=== PATIENT | female | born 1975 | race Caucasian/White ===

== ENCOUNTER → 2018-03-28 | Day surgery (SDC) | END | disposition home or self-care (01) | DX: N80.0 Endometriosis of uterus (principal); N92.0 Excessive and frequent menstruation with regular cycle; N94.6 Dysmenorrhea, unspecified | CPT/HCPCS: 00952; 58563; 84703; 88305; J0131; J0690; J1100; J1885; J2250; J7120; J8501 ==

== ENCOUNTER 2018-09-26 05:18 | Observation (INO) ==
[2018-09-26] MEDS ORDERED: Chlorhexidine Gluconate 2% 1 Pack (2 Cloths) TOPICAL ONE (05:42)
[2018-09-26] MEDS ORDERED: Metoprolol Tartrate 25 MG Tablet PO ONE (05:42)
[2018-09-26] MEDS ORDERED: ceFAZolin 2 GM Premix Inj 2 GM/50 ML PIGGYBACK IV.SIG SCH (06:00)
[2018-09-26] MEDS ORDERED: Sodium Chlor 0.9% Inj 500 ML IV.SIG SCH (06:00)
[2018-09-26] MEDS ORDERED: Bupivacaine/Epinephrine 0.5% Inj 50 ML Vial ONE (07:10)
[2018-09-26] MEDS ORDERED: Fluorescein Sod 10% Inj 500 MG/5 ML Ampul IV.PUSH ONE (07:10)
[2018-09-26] MEDS ORDERED: Esmolol Bolus Inj 100 MG/10 ML Vial IV.PUSH ONE (07:50)
[2018-09-26] MEDS ORDERED: Glycopyrrolate Inj 1 MG/5 ML Syringe IV.PUSH ONE (07:50)
[2018-09-26] MEDS ORDERED: Neostigmine Inj 5 MG/5 ML Syringe IV.PUSH ONE (07:50)
[2018-09-26] MEDS ORDERED: Lidocaine PF 1% Inj 5 ML Syringe OTHER ONE (07:50)
--- NOTE | 2018-09-26 07:57 | P.OP ---
- Preoperative Diagnosis (1) Excessive and frequent menstruation with regular cycle (2) Endometriosis of pelvic peritoneum (3) Intramural leiomyoma of uterus (4) Other specified conditions associated with female genital organs and menstrual cycle - Postoperative Diagnosis (1) Excessive and frequent menstruation with regular cycle (2) Endometriosis of pelvic peritoneum (3) Intramural leiomyoma of uterus (4) Other specified conditions associated with female genital organs and menstrual cycle Date of procedure: 09/26/18 Procedure: 1. laparoscopic supracervical hysterectomy 2. bilateral salpingectomy 3. fulguration of endometriosis Anesthesia: [place] Surgeon: Colleen Vásquez MD [employer] Pit Supervisor: OR Staff Estimated blood loss (mL): 25 IV fluids (mL): 1,000 (+ IV antibiotics + Methylene blue) Urine output (mL): 200 Pathology: other (uterus, tubes) Operation and Findings: Findings: 1. enlarged uterus 2. normal tubes and ovaries 3. extensive endometriosis in pelvic area / adnexa Complications: none Condition: stable Disposition: PACU Descriptions of the procedure: I discussed the risks, benefits and alternatives of the procedure with the patient. Informed consent was obtained after questions were answered. She was then taken to the operating room with her IV running. She was placed in the supine position and was given general anesthesia without difficulties or complications. IV antibiotics were given prior to surgery. She was then placed in the dorsal lithotomy position and was prepped and draped in the usual sterile fashion. Attention was first turned to the patient's genital area. A bivalved speculum was introduced inside the patient's vagina. The anterior aspect of the cervix was grasped with a single tooth tenaculum for manipulation. The cervix was carefully dilated and electrocauterized with the Bovie. A uterine manipulator was carefully introduced inside her uterus. The rest of the instruments were removed from the patient's vagina. A sterile blue towel was used to cover the perineum. The surgeon changed gloves and attention was then turned to the patient's abdomen. A vertical umbilical incision was made with the scalpel. A 5 mm trocar was introduced inside the patient's abdomen under direct visualization. A pneumo -peritoneum was created with CO2 gas. One 5 mm trocars and one 10 mm trocar were introduced inside the patient's abdomen under direct visualization in the lower left and mid abdomen. A survey of the patient's abdomen revealed normal anatomy. A survey of the patient's pelvis revealed the findings noted above. The fallopian tubes were carefully grasped, electrocauterized and transected with the Harmonic scalpel. The round ligaments and the utero-ovarian ligaments were carefully and serially grasped, electrocauterized and cut with the Harmonic scalpel. Excellent hemostasis was noted. Methylene blue dye was given to patient. The tissues along the uterus on both sides were serially grasped, electrocauterized and transected with the Harmonic scalpel. The ureters were noted to be away from the surgical site. The uterine vessels were skeletonized, electrocauterized and transected with the Harmonic scalpel. Good hemostasis was noted. Next, the bladder flap was created and the bladder was dissected off the lower uterine segment. Excellent hemostasis was noted. The uterine manipulator was removed. Chen loop was used to cut and electrocauterize the cervico-uterine junction. Good hemostasis was noted. The Kleppinger was used to electrocauterize the endocervix. The morcellator was introduced inside the abdomen under direct visualization and was used to cut the uterus. The tissues were carefully removed and sent to Pathology. The multiple endometriotic lesions were electrocauterized with the Kleppinger. The surgical sites were noted to be hemostatic. Copious irrigation was done. Care was taken to ensure the removal of all small pieces of tissue which were left in the abdomen and pelvis after morcellation. Methylene blue dye was given at the beginning of the surgical procedure. The ureters were identified again and were found to be away from the surgical sites. There was no evidence of injury or blockage of the ureters or bladder. Intercede was placed over the cervix. All of the instruments were removed from the patient's abdomen. The ports were also removed under direct visualization. Excellent hemostasis was noted. The CO2 gas was carefully expressed out of the patient's abdomen. The 10 mm fascial incision was reapproximated with a figure eight stitch of 0-Vicryl. The skin incisions were injected with 0.5 % Marcaine and were reapproximated with subcutaneous stitches of 4-0 Vicryl. Mastisol and steri strips were placed over the incisions. The patient tolerated the procedure well. She was successfully extubated and transferred to PACU in stable condition. Note: I discussed surgical procedures and surgical findings with patient's significant other. His questions were answered. He verbalized understanding.
[2018-09-26] MEDS ORDERED: Ibuprofen 600 MG Tablet PO PRN (09:35)
[2018-09-26] MEDS ORDERED: Zolpidem Tartrate 5 MG Tablet PO PRN (09:35)
[2018-09-26] MEDS ORDERED: LORazepam 0.5 MG Tablet PO PRN (09:35)
[2018-09-26] MEDS ORDERED: fentaNYL Citrate Inj 100 MCG/2 ML Ampul ONE (09:59)
[2018-09-26] MEDS ORDERED: Morphine Inj 4 MG/ML Vial ONE ×2 (09:59)
[2018-09-26] MEDS ORDERED: *Ondansetron Inj 4 MG/2 ML Vial PERIprocedural Use ONLY ONE (10:03)
[2018-09-26] MEDS ORDERED: *Promethazine Inj 25 MG/ML Vial PERIprocedural use ONLY ONE (10:24)
[2018-09-26 17:00] VITALS: RESP 18
[2018-09-26] MEDS: Docusate Sodium 100 MG Capsule PO SCH (22:08)
[2018-09-26 23:39] VITALS: TEMP 98.1; O2SAT 97
[2018-09-27 05:29] VITALS: BP 103/55; PULSE 68
[2018-09-27 07:16] LABS: Baso % (Auto) 0.4 % (0.0-2.0); Eos # (Auto) 0.1 th/mm3 (0.0-0.4); Eos % (Auto) 1.3 % (0.0-4.0); Hematocrit 40.6 % (35.0-46.0); Hemoglobin 13.7 gm/dL (11.6-15.3); Lymph # (Auto) 1.3 th/mm3 (1.0-4.8); Lymph % (Auto) 15.4 % (9.0-44.0); Mean Corpuscular HGB Conc 33.6 % (32.0-36.0); Mean Corpuscular Volume 95.3 fL (80.0-100.0); Mean Platelet Volume 7.2 fL (7.0-11.0); Mono # (Auto) 0.4 th/mm3 (0.0-0.9); Mono % (Auto) 4.8 % (0.0-8.0); Neut # (Auto) 6.8 th/mm3 (1.8-7.7); Neut % (Auto) 78.1 % (16.0-70.0); Platelet Count 197 th/mm3 (150-450); Red Blood Count 4.26 mil/mm3 (4.00-5.30); Red Cell Distribution Width 12.8 % (11.6-17.2); White Blood Count 8.7 th/mm3 (4.0-11.0)
[2018-09-27 07:33] LABS: Anion Gap 6 meq/L (5-15); Blood Urea Nitrogen 9 mg/dL (7-18); Calcium 7.9 mg/dL (8.5-10.1); Carbon Dioxide 29.4 meq/L (21.0-32.0); Chloride 107 meq/L (98-107); Glomerular Filtration Rate Greater Than 89 mL/min (>89); Glucose,Random 87 mg/dL (74-106); Potassium 3.5 meq/L (3.5-5.1); Sodium 142 meq/L (136-145)
--- NOTE | 2018-09-27 09:08 | P.PNOB ---
Assessment and Plan (1) Pelvic pain Status: Acute - Postoperative Procedures Operation Date: 09/26/18 07:50 Actual Procedures Side Surgeon p LAPAROSCOPIC SUPRACERVICAL HYSTERECTOMY, BILATERAL SALPINGECTOMY, FULGARIZATION OF ENDOMETRIOSIS Bilateral Colleen Vásquez MD Postoperative day: 1 Postoperative status: doing well Postoperative plan: routine post-op care, discharge - Time Spent With Patient Total time spent is greater than 50% in coordination of care (as documented) at patient's floor/unit and/or counseling patient: less than 15 minutes Subjective Subjective: patient reports feeling better, patient has no complaints, patient desires discharge, pain is well controlled, patient is tolerating oral intake ( patient has no complaints (RN)) Physical Exam Vital signs: Temp Pulse Resp BP Pulse Ox 98.1 F 68 18 103/55 L 97 09/27/18 04:00 09/27/18 04:00 09/26/18 23:37 09/27/18 04:00 09/27/18 04:00 - Constitutional no acute distress - Routine Abdominal Exam Present: soft, normoactive bowel sounds Comments: incisions are C/D/I with bandages in place - Urinary Catheter Management Indwelling Urethral Catheter Cath placed during this visit: yes, but has since been removed by the nurse Insertion date: 09/26/18 Insertion time: 08:29 Removal date: 09/27/18 Removal time: 07:50 Results - Labs CBC & Chem 7: 09/27/18 06:58 09/27/18 06:58 Labs: Laboratory Results - last 24 hr 09/27/18 09/27/18 06:58 06:58 WBC 8.7 RBC 4.26 Hgb 13.7 Hct 40.6 MCV 95.3 MCH 32.0 MCHC 33.6 RDW 12.8 Plt Count 197 MPV 7.2 Neut % (Auto) 78.1 H Lymph % (Auto) 15.4 Terry % (Auto) 4.8 Eos % (Auto) 1.3 Baso % (Auto) 0.4 Neut # (Auto) 6.8 Lymph # (Auto) 1.3 Terry # (Auto) 0.4 Eos # (Auto) 0.1 Baso # (Auto) 0.0 WBC Differential . Differential Comment Auto diff final Sodium 142 Potassium 3.5 Chloride 107 Carbon Dioxide 29.4 Anion Gap 6 BUN 9 Creatinine 0.67 Estimated GFR Greater than 89 Random Glucose 87 Calcium 7.9 L
[2018-09-27] MEDS: Docusate Sodium 100 MG Capsule PO SCH (09:13)
== END 2018-09-27 11:17 | disposition home or self-care (01) ==
LOC: H1EA 05:18 → HSDC 05:18
PROVIDERS: ADMIT Obstetrics & Gynecology; ATTEND Obstetrics & Gynecology
PROC: LAPLASH (ICD-10-PCS; 2018-09-26 07:50)